=== PATIENT | male | born 1980 | race Asian ===

== ENCOUNTER 2022-11-12 08:30 | Outpatient (CLI) | payer OTHER, SELFPAY | END 2022-11-12 08:31 | disposition home or self-care (01) | PROVIDERS: PCP Family Medicine; Visit Provider Family Medicine | DX: I10 Essential (primary) hypertension (principal); E78.5 Hyperlipidemia, unspecified; R03.0 Elevated blood-pressure reading, without diagnosis of hypertension; Z12.5 Encounter for screening for malignant neoplasm of prostate | CPT/HCPCS: 80048; 80061; 84153; 84403 ==

== ENCOUNTER 2024-01-29 08:11 | Outpatient (CLI) | payer OTHER, SELFPAY | END 2024-01-29 08:12 | disposition home or self-care (01) | PROVIDERS: PCP Family Medicine; Visit Provider Family Medicine | DX: Z00.00 Encounter for general adult medical examination without abnormal findings (principal); I10 Essential (primary) hypertension; E78.5 Hyperlipidemia, unspecified; R53.83 Other fatigue; E29.1 Testicular hypofunction | CPT/HCPCS: 80048; 80061; 84403 ==

== ENCOUNTER 2025-02-02 08:21 | Outpatient (CLI) | payer OTHER, SELFPAY | END 2025-02-02 08:22 | disposition home or self-care (01) | PROVIDERS: PCP Family Medicine; Visit Provider Family Medicine | DX: E78.2 Mixed hyperlipidemia (principal); I10 Essential (primary) hypertension | CPT/HCPCS: 80053; 80061 ==